=== PATIENT | female | born 1975 | race American Indian/Alaskan Native ===

== ENCOUNTER 2022-01-08 18:32 | Emergency (ER) | payer MEDICAID ==
[2022-01-08 21:21] LABS: Basophils # (Auto) 0.1 K/mm3 (0.0-0.1); Basophils % (Auto) 0.6 % (0.0-1.8); Eosinophils # (Auto) 0.1 K/mm3 (0.0-0.4); Eosinophils % (Auto) 0.5 % (0.0-4.3); Hematocrit 28.6 % (30.3-42.9); Hemoglobin 9.1 gm/dl (10.1-14.3); Lymphocytes # (Auto) 1.5 K/mm3 (1.2-5.4); Lymphocytes % (Auto) 14.2 % (13.4-35.0); Mean Corpuscular HGB Conc 32 % (30-34); Monocytes # (Auto) 0.6 K/mm3 (0.0-0.8); Monocytes % (Auto) 5.7 % (0.0-7.3); Platelet Count 416 K/mm3 (140-440); Red Cell Distribution Width 17.9 % (13.2-15.2)
[2022-01-08 21:23] LABS: Mean Corpuscular Volume 68 fl (79-97)
[2022-01-08 21:46] LABS: Alanine Aminotransferase 14 units/L (7-56); Albumin 4.4 g/dL (3.9-5); BUN/Creatinine Ratio 18; Blood Urea Nitrogen 16 mg/dL (7-17); Calcium 9.6 mg/dL (8.4-10.2); Hemolysis Index 14
[2022-01-08 22:30] LABS: Bilirubin,Urine NEG (Negative); Blood,Urine NEG (Negative); Color,Urine Colorless (Yellow); Protein,Urine <15 mg/dL mg/dL (Negative); RBC,Urine < 1.0 /HPF (0.0-6.0); Urobilinogen,Urine < 2.0 mg/dL (<2.0); WBC,Urine < 1.0 /HPF (0.0-6.0)
--- NOTE | 2022-01-09 00:50 | Emergency Department Report ---
ED Dizziness HPI - General Chief Complaint: Dizziness Stated Complaint: WEAK Time Seen by Provider: 01/09/22 00:06 Source: patient, family Mode of arrival: Wheelchair Limitations: No Limitations - History of Present Illness Initial Comments: 46-year-old female with a past medical history of hypertension and elevated: Off medications for "a long time" presents to the hospital with episode of lightheadedness while walking/leaving a store. Patient felt like she was going to pass out. She denies headache, blurry vision, chest pain, shortness of breath, nausea, vomiting, or diaphoresis. She is currently asymptomatic. Patient does report left shoulder pain is worse with movement and palpation with pain extending through the trapezius - Related Data Previous Rx's Medication Instructions Recorded Last Taken Type labetaloL [Labetalol 100mg TAB] 100 mg PO BID #60 tab 01/09/22 Unknown Rx Allergies Allergy/AdvReac Type Severity Reaction Status Date / Time No Known Allergies Allergy Unverified 01/08/22 18:52 ED Review of Systems ROS: Stated complaint: WEAK Other details as noted in HPI Comment: All other systems reviewed and negative ED Past Medical Hx - Medications Home Medications: Home Medications Medication Instructions Recorded Confirmed Last Taken Type labetaloL [Labetalol 100mg TAB] 100 mg PO BID #60 tab 01/09/22 Unknown Rx ED Physical Exam - General Limitations: No Limitations - Other Other exam information: General: No acute distress Head: Atraumatic Eyes: normal appearance ENT: Moist mucous membranes Neck: Normal appearance, no midline tenderness Chest: Clear to auscultation bilaterally CV: Regular rate and rhythm Abdomen: Soft, normal bowel sounds, nontender, nondistended, no rebound or guarding Back: Normal inspection Extremity: Left shoulder pain with movement Neuro: Alert O x 3, no facial asymmetry, speech clear, no gross motor sensory deficit Psych: Appropriate behavior Skin: No rash ED Course Vital Signs 01/08/22 01/09/22 01/09/22 18:50 00:57 03:51 Temperature 98.1 F Pulse Rate 110 H 88 69 Respiratory 18 16 16 Rate Blood Pressure 230/97 Blood Pressure 234/113 232/121 [Right] O2 Sat by Pulse 100 100 100 Oximetry ED Medical Decision Making - Lab Data Result diagrams: 01/08/22 21:05 01/08/22 21:05 Lab Results 01/08/22 01/08/22 01/08/22 Range/Units 18:37 21:05 21:05 WBC 10.8 (4.5-11.0) K/mm3 RBC 4.20 (3.65-5.03) M/mm3 Hgb 9.1 L (10.1-14.3) gm/dl Hct 28.6 L (30.3-42.9) % MCV 68 L (79-97) fl MCH 22 L (28-32) pg MCHC 32 (30-34) % RDW 17.9 H (13.2-15.2) % Plt Count 416 (140-440) K/mm3 Lymph % (Auto) 14.2 (13.4-35.0) % [place] % (Auto) 5.7 (0.0-7.3) % Eos % (Auto) 0.5 (0.0-4.3) % Baso % (Auto) 0.6 (0.0-1.8) % Lymph # (Auto) 1.5 (1.2-5.4) K/mm3 [place] # (Auto) 0.6 (0.0-0.8) K/mm3 Eos # (Auto) 0.1 (0.0-0.4) K/mm3 Baso # (Auto) 0.1 (0.0-0.1) K/mm3 Seg Neutrophils % 79.0 H (40.0-70.0) % Seg Neutrophils # 8.6 H (1.8-7.7) K/mm3 Sodium 141 (137-145) mmol/L Potassium 4.1 (3.6-5.0) mmol/L Chloride 103.0 (98-107) mmol/L Carbon Dioxide 24 (22-30) mmol/L Anion Gap 18 mmol/L BUN 16 (7-17) mg/dL Creatinine 0.9 (0.6-1.2) mg/dL Estimated GFR > 60 ml/min BUN/Creatinine Ratio 18 % Glucose 120 H (65-100) mg/dL POC Glucose 112 H (70-105) mg/dL Calcium 9.6 (8.4-10.2) mg/dL Total Bilirubin 0.20 (0.1-1.2) mg/dL AST 17 (5-40) units/L ALT 14 (7-56) units/L Alkaline Phosphatase 65 (35-129) units/L Troponin T < 0.010 (0.00-0.029) ng/mL Total Protein 7.7 (6.3-8.2) g/dL Albumin 4.4 (3.9-5) g/dL Albumin/Globulin Ratio 1.3 % HCG, Qual (Negative) Urine Color (Yellow) Urine Turbidity (Clear) Urine pH (5.0-7.0) Ur Specific [place] (1.003-1.030) Urine Protein (Negative) mg/dL Urine Glucose (UA) (Negative) mg/dL Urine Ketones (Negative) mg/dL Urine Blood (Negative) Urine Nitrite (Negative) Urine Bilirubin (Negative) Urine Urobilinogen (<2.0) mg/dL Ur Leukocyte Esterase (Negative) Urine WBC (Auto) (0.0-6.0) /HPF Urine RBC (Auto) (0.0-6.0) /HPF U Epithel Cells (Auto) (0-13.0) /HPF 01/08/22 01/08/22 01/09/22 Range/Units 21:05 Unknown 02:56 WBC (4.5-11.0) K/mm3 RBC (3.65-5.03) M/mm3 Hgb (10.1-14.3) gm/dl Hct (30.3-42.9) % MCV (79-97) fl MCH (28-32) pg MCHC (30-34) % RDW (13.2-15.2) % Plt Count (140-440) K/mm3 Lymph % (Auto) (13.4-35.0) % [place] % (Auto) (0.0-7.3) % Eos % (Auto) (0.0-4.3) % Baso % (Auto) (0.0-1.8) % Lymph # (Auto) (1.2-5.4) K/mm3 [place] # (Auto) (0.0-0.8) K/mm3 Eos # (Auto) (0.0-0.4) K/mm3 Baso # (Auto) (0.0-0.1) K/mm3 Seg Neutrophils % (40.0-70.0) % Seg Neutrophils # (1.8-7.7) K/mm3 Sodium (137-145) mmol/L Potassium (3.6-5.0) mmol/L Chloride (98-107) mmol/L Carbon Dioxide (22-30) mmol/L Anion Gap mmol/L BUN (7-17) mg/dL Creatinine (0.6-1.2) mg/dL Estimated GFR ml/min BUN/Creatinine Ratio % Glucose (65-100) mg/dL POC Glucose (70-105) mg/dL Calcium (8.4-10.2) mg/dL Total Bilirubin (0.1-1.2) mg/dL AST (5-40) units/L ALT (7-56) units/L Alkaline Phosphatase (35-129) units/L Troponin T < 0.010 (0.00-0.029) ng/mL Total Protein (6.3-8.2) g/dL Albumin (3.9-5) g/dL Albumin/Globulin Ratio % HCG, Qual Negative (Negative) Urine Color Colorless (Yellow) Urine Turbidity Clear (Clear) Urine pH 7.0 (5.0-7.0) Ur Specific [place] 1.005 (1.003-1.030) Urine Protein <15 mg/dl (Negative) mg/dL Urine Glucose (UA) Neg (Negative) mg/dL Urine Ketones Neg (Negative) mg/dL Urine Blood Neg (Negative) Urine Nitrite Neg (Negative) Urine Bilirubin Neg (Negative) Urine Urobilinogen < 2.0 (<2.0) mg/dL Ur Leukocyte Esterase Neg (Negative) Urine WBC (Auto) < 1.0 (0.0-6.0) /HPF Urine RBC (Auto) < 1.0 (0.0-6.0) /HPF U Epithel Cells (Auto) 2.0 (0-13.0) /HPF - EKG Data -: EKG Interpreted by [place] EKG shows normal: sinus rhythm, ST-T waves (Significant LVH with diffuse T wave inversions likely secondary to repolarization) Rate: normal - Medical Decision Making Microcytic anemia noted suspect mild iron deficiency Patient pain-free during ED stay and asymptomatic. Blood pressure significantly elevated however, patient does not have signs of endorgan damage. Patient did receive clonidine with mild reduction in blood pressure. Troponin negative x2 with EKG findings suggestive of longstanding untreated hypertension. Patient will be started on labetalol twice daily and encouraged to follow-up with PMD Critical Care Time: No Critical care attestation.: If time is entered above; I have spent that time in minutes in the direct care of this critically ill patient, excluding procedure time. ED Disposition Clinical Impression: Microcytic anemia, Uncontrolled hypertension, Noncompliance with medication regimen, Episodic lightheadedness Disposition: 01 HOME / SELF CARE / HOMELESS Is pt being admited?: No Does the pt Need Aspirin: No Condition: Stable Instructions: Hypertension (ED), Iron-Rich Diet, Hypertension, Adult, Dizziness Additional Instructions: Take the medication as prescribed. It is very important you follow-up with a primary care doctor for further management of your blood pressure return if symptoms worsen as indicated by your discharge instructions. Prescriptions: labetaloL [Labetalol 100mg TAB] 100 mg PO BID #60 tab Referrals: PRIMARY CAREMD [Primary Care Provider] - 3-5 Days CAMILO PAGE MD [Staff Physician] - 3-5 Days (Primary care doctor) Time of Disposition: 04:12
[2022-01-09] MEDS ORDERED: cloNIDine 0.2 MG TAB PO ONE (01:14)
[2022-01-09 05:23] VITALS: BP 192/95
--- NOTE | 2022-01-12 17:14 | Electrocardiograph Report ---
[facility] Test Date: 2022-01-08 Test Time: 20:51:54 Pat Name: TARIQ KANG Department: Room: Gender: F [employer] Operator: ROBERT : 1975 Requested By: SUZAN LOPEZ Order Number: [id number] Reading MD: Krys Donis Measurements Intervals [place] Rate: 83 P: 67 MD: 167 QRS: 63 QRSD: 97 T: 244 QT: 412 QTc: 484 Interpretive Statements Sinus rhythm LVH WITH SECONDARY REPOLARIZATION ABNORMALITY No previous ECG available for comparison Electronically Signed On 01-12-2022 17:14:00 EST by Krys Donis
== END 2022-01-09 05:15 | disposition home or self-care (01) ==
LOC: ED 18:32
DX: D50.9 Iron deficiency anemia, unspecified (principal); I10 Essential (primary) hypertension; Z91.14 Patient's other noncompliance with medication regimen; R42 Dizziness and giddiness
CPT/HCPCS: 36415; 80053; 81001; 82962; 84484; 84703; 85025; 93005; 93010; 99284